=== PATIENT | male | born 1960 | race Caucasian/White ===

== ENCOUNTER 2021-08-08 13:09 | Day surgery (SDC) | payer SELFPAY ==
[2021-08-08] VITALS (10 sets, daily range): BP systolic 120–152; BP diastolic 51–89; PULSE 53–76; TEMP 97.6–98.3
[~2021-08-08] VITALS: Ht 193 cm; Wt 95.0 kg
[2021-08-08] MEDS ORDERED: FLOMAX 0.40.4 MG/CAP PO (13:42)
[2021-08-08] MEDS ORDERED: PRILOTC PO (13:42)
[2021-08-08] MEDS ORDERED: BACTRIM 400 MG-1 TAB PO (13:43)
[2021-08-08] MEDS ORDERED: PYRIDIUM 100MG100 MG PO (16:43)
[2021-08-08] MEDS ORDERED: BACTRIM DS 8001 TAB PO (17:49)
--- NOTE | 2021-08-08 20:30 | NUR ---
PATIENT IS ALERT AND ORIENTED X4. LEFT TO GO HOME. PATIENT HAS CBI RUNNING FAST. OUTPUT IS LIGHT RED. PATIENT HAS 40CC IN 3 WAY LUNDBERG AND LUNDBERG IS TAPPED FOR TRACTION. PATIENT HAS IV TO LEFT HAND WITH FLUIDS INFUSING. PATIENT ON GENERAL DIET. PATIENT DENIES PAIN OR FURTHER NEEDS AT THIS TIME. CALL LIGHT WITHIN REACH. HEAD TO TOE ASSESSMENT COMPLETE.PATIENT GIVEN SANDWICH BOX AND ICE WATER.
[2021-08-09 04:00] VITALS: BP 135/71; PULSE 72; TEMP 98.3
--- NOTE | 2021-08-09 05:58 | NUR ---
PATIENT SLEPT ON AND OFF THROUGHOUT NIGHT. CBI GOING FAST ALL NIGHT. OUTPUT IS REDDISH AND CLEAR. PATIENT GIVEN PAIN MEDS PER ORDERS. WILL REPORT TO DAYSHIFT.
[2021-08-09 07:30] VITALS: BP 140/81; PULSE 65; TEMP 97.8
--- NOTE | 2021-08-09 09:03 | NUR ---
Pt doing well this morning. He does not have much of an appetite and refused breakfast. He is drinking liquids with no problem. Pt does have family in the room. He has no pain complaints. CBI running at slow to moderate rate with red tinged output. Pt updated on plan of care for the day. All questions answered
--- NOTE | 2021-08-09 09:06 | NUR ---
Pt doing well this morning. He did have some pain complaints from the catheter, PRN given. CBI turned down per Dr Ley earlier this am, will update him mid morning. Only one small clot seen since it was turned down. Pt has had breakfast, no complaints. Pts present in the room, all questions answered.
--- NOTE | 2021-08-09 10:08 | NUR ---
Pt output is looking clear with minimal clots seen. Updated Dr Ley, new order received. Pt continues to do well
--- NOTE | 2021-08-09 10:31 | NUR ---
disc pad knockout worker met with patient and spouse to discuss discharge planning. Patient plans to return home where he resides with his . Patient has been independent with his activities of daily living and denies concerns related to discharge. Patient stated that he does not have a primary care provider and worker will provide a list of offices. Patient states he has [employer] insurance and worker took a copy to registration. Patient states he has advance directives and denies difficulty obtaining his prescriptions.
[2021-08-09 11:28] VITALS: BP 135/74; PULSE 70; TEMP 98
--- NOTE | 2021-08-09 11:45 | NUR ---
Pt doing well. Gonzalez catheter has been removed and pt has voided x1. No needs or complaints. He is aware that he is supposed to notify nursing when he voids
--- NOTE | 2021-08-09 13:33 | NUR ---
Head Concierge provided patient with list of primary care providers in [place]. Patient declined to have SW set up an appointment for him. No additional needs identified at this time.
--- NOTE | 2021-08-09 15:36 | NUR ---
Pt doing well and completed the 6 bottle. Output remained red tinged with no clots. Dr Ley updated and orders given for discharge. Reviewed discharge instructions with pt and his family. All questions answered. INT removed from left wrist
== END 2021-08-09 15:45 | disposition home or self-care (01) ==
LOC: SDCO 13:09 → SURG 18:36 → SDCO 08-09 15:45
DX: N40.1 Benign prostatic hyperplasia with lower urinary tract symptoms (principal); R39.12 Poor urinary stream; R39.14 Feeling of incomplete bladder emptying; R35.1 Nocturia; N30.00 Acute cystitis without hematuria; R82.998 Other abnormal findings in urine; R33.9 Retention of urine, unspecified; M54.50 Low back pain, unspecified; Z79.899 Other long term (current) drug therapy
CPT/HCPCS: OP; J0690; J2250; J2405; J2704; J3010; J3480; J7120